=== PATIENT | male | born 1955 | race Caucasian/White ===

== ENCOUNTER 2019-05-24 00:51 | Inpatient (IN) | payer OTHER ==
[~2019-05-24] VITALS: Ht 177.8 cm; Wt 125.9 kg
[2019-05-24] VITALS (7 sets, daily range): BP systolic 133–193; BP diastolic 62–94
[2019-05-24] MEDS ORDERED: LISINOPRIL40 MG PO (01:12)
[2019-05-24] MEDS ORDERED: GLYBURIDE 5 MG T5 M1 PO (01:13)
[2019-05-24] MEDS ORDERED: NORVASC 2.5 MG2.5 M1 PO (01:14)
[2019-05-24] MEDS ORDERED: METFORMIN HCL500 MG PO (01:14)
[2019-05-24] MEDS ORDERED: FARXIGA5 MG PO (01:15)
[2019-05-24] MEDS ORDERED: LIPITOR10 MG PO (01:16)
[2019-05-24] MEDS ORDERED: TRULICITY0.75 MG/0. SUBQ (01:17)
[2019-05-24 01:39] LABS: ABSOLUTE EOSINOPHILS 0.3 thou/uL (0.0-0.7); ABSOLUTE LYMPHOCYTES 2.1 thou/uL (0.8-5.3); ABSOLUTE MONOCYTES 0.8 thou/uL (0.0-1.2); ABSOLUTE NEUTROPHILS 6.2 thou/uL (1.6-8.1); BASOPHILS 0.4 %; HEMATOCRIT 46.2 % (42.0-52.0); HEMOGLOBIN 15.9 gm/dL (14.0-18.0); LYMPHOCYTES 22.8 %; MCH 30.9 pg (26.0-34.0); MCHC 34.4 g/dL (28.0-37.0); MCV 89.7 fL (80.0-100.0); MONOCYTES 8.3 %; NUCLEATED RBCS 0 /100WBC; PLATELET COUNT* 196 thou/uL (150-400); POLYS 65.5 %; RBC 5.16 mil/uL (4.50-6.00); RDW-CV 13.5 % (10.5-14.5); WBC 9.4 thou/uL (4.0-11.0)
[2019-05-24 01:44] LABS: CREATININE 1.2 mg/dL (0.6-1.3); POTASSIUM 3.6 mmol/L (3.5-5.1)
[2019-05-24 01:54] LABS: APTT 23.8 Seconds (25.0-31.3); INR 1.1; PROTIME 11.2 Seconds (9.20-11.50)
[2019-05-24 01:55] LABS: ALBUMIN 3.8 g/dL (3.4-5.0); TOTAL BILIRUBIN 0.3 mg/dL (<0.1-1.0); TOTAL PROTEIN 7.1 g/dL (6.4-8.2)
--- NOTE | 2019-05-24 06:29 | NUR ---
REPORT RECIEVED FROM ER. PT ORIENTED TO ROOM, CALL LIGHT SHOWN, FALL AGREEMENT GONE OVER, PT STATED UNDERSTANDING. ADMISSION DOCUMENTED. IV PATENT. PT REPORTS HE DOES NOT FEEL DIZZY ANYMORE. WILL CONTINUE WITH PLAN OF CARE.
--- NOTE | 2019-05-24 14:05 | NUR ---
INITIAL ASSESSMENT COMPLETED CHARTED. VSS. TRACING SR ON MONITOR. PT DENIES PAIN, CP, N/V/D AT THIS TIME. NO NEW CONCERNS. HOURLY ROUNDING IN PLACE FOR PT SAFETY. CLWR
[2019-05-24] MEDS ORDERED: NORVASC5 MG PO (14:13)
--- NOTE | 2019-05-24 15:14 | EKG ---
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: AJ : 1955 Requested By: Candelaria Mott Order Number: [id number] MD: Yoseph Mcclure Measurements Intervals Dorena Rate: 76 P: 19 AK: 162 QRS: -32 QRSD: 89 T: 70 QT: 398 QTc: 448 Interpretive Statements Sinus rhythm Probable left atrial enlargement Inferior infarct, old No previous ECG available for comparison Electronically Signed On 05-24-2019 15:14:05 [employer] MACHINE F[employer] by Yoseph Mcclure [email or web address] <ELECTRONICALLY SIGNED> By: Yoseph Mcclure MD, [facility] 05/24/19 1514 1 1 Yoseph Mcclure MD, FACC /EPI
--- NOTE | 2019-05-24 16:03 | CON ---
[address] [address] CONSULTATION Name: LALIT GUTIERREZ Room: [address] IN .R.#: [id number] Admission: 05/24/19 Attend Phys: Shantal Feng MD Discharge: Date of : 59 Report #: [id number] THIS REPORT FOR: //name// CC: Harley Feng DATE OF SERVICE: 05/24/2019 CARDIOLOGY CONSULTATION HISTORY OF PRESENT ILLNESS: The patient is a 63-year-old white male who I was asked to see in the hospital today after he complained of being dizzy. The patient has no previous history of heart disease. However, he has a long history of diabetes, hypertension, hyperlipidemia. He is also morbidly obese, standing 5 feet 2 and weighing 280 pounds. He is not very active at this time. He was doing well until yesterday morning he complained of when he was walking he had problems with balance. He would fall to the side. He had to hold himself up. His finally brought him to the Emergency Room. He denied any blurred vision, slurred speech. Denied any vomiting, diarrhea, or bleeding. There was concern he may have had a stroke. He is admitted for further evaluation and treatment. His troponin was borderline elevated. However, he denied any history of chest pain, shortness of breath, palpitations, syncope. He does have occasional edema that improves when he elevates his feet at night. PAST MEDICAL HISTORY: Significant for knee surgery. MEDICATIONS: On admission included lisinopril, glyburide, amlodipine, metformin, Farxiga, Lipitor, Trulicity. ALLERGIES: He had no known drug allergies. FAMILY HISTORY: His aunt had coronary artery bypass surgery in her 80s. SOCIAL HISTORY: He is . He and his live in [place]. 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 No smoking. Rarely drinks alcohol. REVIEW OF SYSTEMS: He has had no history of stroke, asthma, liver disease, peptic ulcer disease, kidney disease, cancer, chronic skin condition. PHYSICAL EXAMINATION: GENERAL: Revealed a large middle-aged male, lying in bed, appeared in no distress. VITAL SIGNS: He had a blood pressure of 150/70, pulse is 80. He is afebrile. HEENT: He was anicteric. Conjunctivae are pink. Mucous membranes moist. NECK: Veins nondistended. No carotid bruits. Neck supple. CHEST: [place] [address] CONSULTATION Name: LALIT GUTIERREZ Room: [address]#: [id number] Admission: 05/24/19 Attend Phys: Shantal Feng MD Discharge: Date of : 59 Report #: [id number] CARDIOVASCULAR: Regular rate and rhythm. ABDOMEN: Obese. EXTREMITIES: Had no edema. Dorsalis pedis pulse 2+ bilaterally. SKIN: Warm and dry. NEUROLOGIC: Nonfocal. LYMPH: No adenopathy. MUSCULOSKELETAL: No joint effusion. His workup in the Emergency Room on the monitor, he appeared to be in sinus rhythm. His x-rays, portable chest x-ray showed normal heart size, clear lung freed. CT scan of the head was performed without contrast that showed no acute abnormality. LABORATORY DATA: Sodium 141, creatinine 1.2, glucose 261. Troponin 0.06, repeat was 0.07. White blood cell count 9.4, hemoglobin 15.9. IMPRESSION AND RECOMMENDATIONS: 1. Borderline elevation of troponin. Suspect non-myocardial infarction related to minimal elevation of troponin. I would not recommend additional cardiac evaluation at this time. 2. Moderate carotid stenosis. CTA of the carotid artery showed a 55% stenosis of the right internal carotid artery. 3. Diabetes. 4. Hypertension. The patient is on ZO inhibitor and calcium wilfrido. 5. Hyperlipidemia. The patient is on a statin drug. 6. Obesity. <ELECTRONICALLY SIGNED> By: Yoseph Mcclure MD, FACC 05/24/19 1603 [id number] Mcclure MD, FACC /nt
--- NOTE | 2019-05-24 16:16 | NUR ---
SW met with pt to complete initial assessment, introduce self, and SW role. Pt alert, oriented. 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 Pt does not anticipate any dc needs and hopes to be able to dc soon. SW to remain available to assist with safe dc planning if needs arise.
[2019-05-25 02:06] LABS: GLYCOHEMOGLOBIN (HGB A1C) 7.4 % (4.8-5.6)
== END 2019-05-24 17:34 | disposition home or self-care (01) | DRG 305 ==
LOC: M.ERS 00:51 → M.TBA-ER 04:30 → M.2W 05:35
PROVIDERS: Personal Emergency Response Attendant; Psychiatry & Neurology Neurology; ADMIT Internal Medicine
DX: I10 Essential (primary) hypertension (principal); M19.90 Unspecified osteoarthritis, unspecified site; E11.9 Type 2 diabetes mellitus without complications; I65.21 Occlusion and stenosis of right carotid artery; E78.5 Hyperlipidemia, unspecified; E66.9 Obesity, unspecified; Z68.39 Body mass index [BMI] 39.0-39.9, adult; Z82.49 Family history of ischemic heart disease and other diseases of the circulatory system; Z79.899 Other long term (current) drug therapy